=== PATIENT | female | born 1970 | race Caucasian/White ===

== ENCOUNTER 2022-08-25 07:57 | Outpatient (CLI) | payer OTHER, SELFPAY ==
--- NOTE | 2022-08-25 08:15 | CRLHL7_ITS ---
For Patients: As a result of the Century Cures Act, medical imaging exams and procedure reports are released immediately into your electronic medical record. You may view this report before your referring provider. If you have questions, please contact your health care provider. BILATERAL SCREENING MAMMOGRAM WITH COMPUTER-AIDED DETECTION AND TOMOSYNTHESIS TECHNIQUE: CC and MLO views were obtained. These mammographic images have been obtained using full-field digital technique. These mammographic images were interpreted with the benefit of computer-aided detection. Breast tomosynthesis was used in this interpretation. COMPARISON FILM: 05/21/21, 09/22/18, 02/11/16. FINDINGS: The breasts are heterogeneously dense, which may obscure small masses. IMPRESSION: There is no radiographic evidence for malignancy. ASSESSMENT: BI-RADS Category 1: Negative RECOMMENDATION: Routine screening mammogram in 1 year. A lay language report of this examination will be provided to the patient. BHARATH SCOTT M.D. Diagnostic Radiologist [email or web address] Transcribed: 6:[address]/Dictated by: Bharath Scott MD @ 08/25/2022 9:24:00 AM (Electronically Signed)
== END 2022-08-25 07:58 | disposition home or self-care (01) ==
LOC: MAMMO 07:58
PROVIDERS: PCP Family Medicine; Visit Provider Family Medicine
DX: Z12.31 Encounter for screening mammogram for malignant neoplasm of breast (principal); R92.2 Inconclusive mammogram
CPT/HCPCS: 77063; 77067

== ENCOUNTER 2023-02-28 07:40 | Outpatient (CLI) | payer OTHER, SELFPAY | END 2023-02-28 07:41 | disposition home or self-care (01) | LOC: NFLDREF 16:47 | PROVIDERS: PCP Family Medicine; Referring Provider Family Medicine; Visit Provider Family Medicine | DX: Z01.419 Encounter for gynecological examination (general) (routine) without abnormal findings (principal); E78.5 Hyperlipidemia, unspecified; Z13.9 Encounter for screening, unspecified | CPT/HCPCS: 80053; 80061 ==

== ENCOUNTER 2023-09-07 15:01 | Outpatient (CLI) | payer BC, SELFPAY ==
--- NOTE | 2023-09-07 15:20 | CRLHL7_ITS ---
For Patients: As a result of the Cures Act, medical imaging exams and procedure reports are released immediately into your electronic medical record. You may view this report before your referring provider. If you have questions, please contact your health care provider. BILATERAL SCREENING MAMMOGRAM WITH COMPUTER-AIDED DETECTION AND TOMOSYNTHESIS TECHNIQUE: CC and MLO views were obtained. These mammographic images have been obtained using full-field digital technique. These mammographic images were interpreted with the benefit of computer-aided detection. Breast Tomosynthesis was used in this interpretation. COMPARISON FILM: 08/25/22, 05/21/21, 09/22/18. FINDINGS: There are scattered areas of fibroglandular density IMPRESSION: There is no radiographic evidence for malignancy. ASSESSMENT: BI-RADS Category 1: Negative RECOMMENDATION: Routine screening mammogram in 1 year. A lay language report of this examination will be provided to the patient. MAYA LEY M.D. Diagnostic/Nuclear Medicine Radiologist [email or web address] HEAVEN:[email or web address] Transcribed: 3:15 p.mElli dixon/Dictated by: Maya Ley MD @ 09/08/2023 8:18:00 AM (Electronically Signed)
== END 2023-09-07 15:02 | disposition home or self-care (01) ==
PROVIDERS: PCP Family Medicine; Visit Provider Family Medicine
DX: Z12.31 Encounter for screening mammogram for malignant neoplasm of breast (principal)
CPT/HCPCS: 77063; 77067

== ENCOUNTER 2024-02-29 07:30 | Outpatient (CLI) | payer OTHER, SELFPAY | END 2024-02-29 07:31 | disposition home or self-care (01) | LOC: NFLDREF 03-02 05:54 | PROVIDERS: PCP Family Medicine; Referring Provider Family Medicine; Visit Provider Family Medicine | DX: E78.5 Hyperlipidemia, unspecified (principal); Z13.1 Encounter for screening for diabetes mellitus | CPT/HCPCS: 80061; 82947 ==

== ENCOUNTER 2024-06-06 07:35 | Outpatient (CLI) | payer BC, SELFPAY ==
--- OUTSIDE RECORDS SUMMARY | 2024-06-08 11:17 | XMS_ITS | Clinical Summary ---
Author Organization [employer] [facility] Address [place], [place] [address] Care Team Providers Care Geophysical Computer Name Role Phone Isabel Rajput MD Primary Care Provider [phone] Allergies No known active allergies Medications Medication Sig Dispensed Refills Start Date End Date Status albuterol HFA (PRO-AIR,VENTOLIN,PRO VENTIL) 90 mcg/actuation inhaler Inhale 2 Puffs by mouth 4 times daily if needed. 0 07/31/2014 Active omega-3 fatty acids-vitamin E (FISH OIL) 1,000 mg cap Take by mouth. 0 07/31/2014 Act yaima multivitamin (MVI) tablet Take 1 tablet by mouth once daily. 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/09/2014 Immunizations Name Administration Dates Next Due Influenza, IIV3 (Age >=3 years) 06/10/2014 Td (Age >=7 Years) 10/26/2002 Social History Tobacco Use Types Packs/Day Years Used Date Smoking Tobacco: Never Tobacco Cessation:Counseling Given: Yes Alcohol Use Standard Drinks/Week Comments Not Asked 0 (1 standard drink = 0.6 oz pur e alcohol) Sex and Gender Information Value Date Recorded Sex Assigned at Not on file Gender Identity Not on file Sexual Orientation Not on file Obstetrics History Last Filed Vital Signs Vital Sign Reading Time Taken Comments Blood Pressure 120/75 09/18/2014 2:58 PM STOCK CHASER Pulse 69 09/18/2014 2:58 PM STOCK CHASER Temperature 36.7 ??C (98.1 ??F) 09/18/2014 2:58 PM CS T Respiratory Rate - - Oxygen Saturation 96% 09/18/2014 2:58 PM STOCK CHASER Inhaled Oxygen Concentration - - Weight 72 kg (158 lb 12.8 oz) 09/18/2014 2:58 PM STOCK CHASER Height 171.5 cm (5' 7.52) 09/18/2014 2:58 PM CS T Body Mass Index 24.49 09/18/2014 2:58 PM STOCK CHASER Plan of Treatment Health Maintenance Due Date Last Done Comments Tdap 1982 Depression screening for age 12+ 1983 HIV for age 15-65 1986 BMI (ht and wt on same day) for age 18+ 1989 Hepatitis C screening for age 18-79 1989 Tetanus booster 10/26/2012 10/26/2002 Colonoscopy through age 75 2016 Lipids for age 45-75 2016 Mammogram for age 45-75 2016 Zoster (shingles) series for age 50+ (1 of 2) 2021 COVID-19 vaccine series (2023- season) 2024 Influenza for age 50-64 04/29/2024 06/10/2014 Pap test for age 21-65 03/06/2027 4, 03/06/2024, 09/21/2018, Additional history exists Pneumococcal series for age 6-64 Aged Out No longer eligible based on patient's age to complete this topic Procedures Procedure Name Priority Date/Time Associated Diagnosis Comments HPV HIGH RISK Routine 03/06/2024 7:56 AM CDT from Last 3 Months or Most Recently Relevant to Health Maintenance Results * HPV HIGH RISK (03/06/2024 7:56 AM CDT) TYPE 16 Negative Negative 03/08/2024 1:44 PM CDT [facility] TYPE 18 Negative Negative 03/08/2024 1:44 PM CDT [facility] OTHER HIGH RISK TYPES Negative Negative 03/08/2024 1:44 PM CDT [facility] Other (Cervical/Vagina l) 03/06/2024 7:56 AM CDT 03/07/2024 11:36 AM CDT [facility]ative [facility] - 03/08/2024 1:44 PM CDT HPV types 16, 18, 31, 33, 35, 39, 45, 51, 52, 56, 58, 59, 66 and 68 DNA were undetectable or below the pre-set threshold. Methodology: Typo Keyboards [place] 4800 HPV Test Cristy Emery MD MICROBIOLOGY [facility] [address] [place] [address], from Last 3 Months or Most Recently Relevant to Health Maintenance Care Teams Geophysical Computer Relationship Specialty Start Date End Date Isabel Rajput MD PCP - General Unknown Physician Specialty 07/31/14
== END 2024-06-06 07:36 | disposition home or self-care (01) ==
LOC: NFLDREF 06-08 11:15
PROVIDERS: PCP Family Medicine; Referring Provider Family Medicine; Visit Provider Family Medicine
DX: E78.5 Hyperlipidemia, unspecified (principal); Z83.2 Family history of diseases of the blood and blood-forming organs and certain disorders involving the immune mechanism
CPT/HCPCS: 80053; 80061; 84443; 86147

== ENCOUNTER 2024-11-05 14:31 | Outpatient (CLI) | payer BC, SELFPAY ==
--- NOTE | 2024-11-05 14:40 | CRLHL7_ITS ---
For Patients: As a result of the Cures Act, medical imaging exams and procedure reports are released immediately into your electronic medical record. You may view this report before your referring provider. If you have questions, please contact your health care provider. BILATERAL SCREENING MAMMOGRAM WITH COMPUTER-AIDED DETECTION AND TOMOSYNTHESIS TECHNIQUE: CC and MLO views were obtained. These mammographic images have been obtained using full-field digital technique. These mammographic images were interpreted with the benefit of computer-aided detection. Breast Tomosynthesis was used in this interpretation. COMPARISON FILM: 09/07/23, 08/25/22, 05/21/21. FINDINGS: There are scattered areas of fibroglandular density IMPRESSION: There is no radiographic evidence for malignancy. ASSESSMENT: BI-RADS Category 1: Negative RECOMMENDATION: Routine screening mammogram in 1 year. A lay language report of this examination will be provided to the patient. Bharath Pulliam M.D. Diagnostic Radiologist [email or web address] [email or web address] Transcribed: 2:23 p.ganesh dixon/Dictated by: Bharath Pulliam MD @ 11/06/2024 8:42:00 AM (Electronically Signed)
== END 2024-11-05 14:32 | disposition home or self-care (01) ==
LOC: MAMMO 14:31
PROVIDERS: PCP Family Medicine; Visit Provider Family Medicine
DX: Z12.31 Encounter for screening mammogram for malignant neoplasm of breast (principal)
CPT/HCPCS: 77063; 77067

== ENCOUNTER 2025-03-05 07:25 | Outpatient (CLI) | payer BC, SELFPAY | END 2025-03-05 07:26 | disposition home or self-care (01) | LOC: NFLDREF 03-07 09:35 | PROVIDERS: PCP Family Medicine; Referring Provider Family Medicine; Visit Provider Family Medicine | DX: Z01.419 Encounter for gynecological examination (general) (routine) without abnormal findings (principal); E78.5 Hyperlipidemia, unspecified; R53.83 Other fatigue | CPT/HCPCS: 80053; 80061; 84443 ==